=== PATIENT | female | born 1945 | race Caucasian/White ===

== ENCOUNTER → 2020-07-11 | Outpatient (CLI) | payer MEDICARE ==
[~2020-07-11] MED LIST: DIOVAN HCT 1601 EACH PO; MOBIC15 MG PO; ZOFRAN ODT4 MG
== END ==
LOC: RAD 12:05
PROVIDERS: ATTEND Surgery Plastic and Reconstructive Surgery
DX: M47.816 Spondylosis without myelopathy or radiculopathy, lumbar region (principal)

== ENCOUNTER 2024-11-15 07:12 | Emergency (ER) | payer MEDICARE ==
[~2024-11-15] VITALS: Ht 162.6 cm; Wt 59.0 kg
[2024-11-15 07:32] VITALS: TEMP 98.6
[2024-11-15 08:10] LABS: BASOPHILS % 0.2 % (0.0-1.0); EOSINOPHILS % 0.3 % (0.0-6.0); LYMPHOCYTES % 2.0 % (18.0-39.1); MONOCYTES % 4.4 % (4.4-11.3); NEUTROPHILS % 92.2 % (38.7-80.0); RED CELL DISTRIBUTION WIDTH 13.2 % (11.7-14.4)
[2024-11-15] MEDS: ONDANSETRON HCL INJ 2MG/ML 2ML 2 MG/ML VIAL IV STA (08:23)
[2024-11-15] MEDS: CLINDAMYCIN PHOS 900MG/ 50ML 50 ML IV ONE (08:23)
[2024-11-15] MEDS: SODIUM CHLORIDE 0.9% 1000ML 1,000 ML IV SCH (08:24)
[2024-11-15 08:39] LABS: EST GLOMERULAR FILTRATION RATE 85.0 ML/MIN (>=60)
[2024-11-15 08:52] VITALS: PULSE 71; RESP 16
[2024-11-15] MEDS ORDERED: ONDANSETRON ODT4 MG PO (09:25)
[2024-11-15 10:10] LABS: BAND NEUTROPHILS % (MANUAL) 2 %; LYMPHOCYTES % (MANUAL) 4 % (19-48); MONOCYTES % (MANUAL) 2 % (3.4-9.0); NEUTROPHILS % (MANUAL) 92 % (40-74); PLATELET ESTIMATE ADEQUATE; PLATELET MORPHOLOGY COMMENT NORMAL
[2024-11-15 10:35] VITALS: BP 135/73; PULSE 82; RESP 18; O2SAT 100
== END 2024-11-15 10:37 | disposition home or self-care (01) ==
LOC: ER 07:23
DX: L03.113 Cellulitis of right upper limb (principal); R11.0 Nausea; I10 Essential (primary) hypertension; F32.A Depression, unspecified; M43.22 Fusion of spine, cervical region; Z85.3 Personal history of malignant neoplasm of breast
CPT/HCPCS: 36415; 80048; 85025; 99283; J2405; J2470; J7030